=== PATIENT | male | born 1955 | race Two or more races ===

== ENCOUNTER 2019-09-08 09:42 | Inpatient (IN) | payer MEDICAID ==
[~2019-09-08] VITALS: Ht 182.9 cm; Wt 136.5 kg
[2019-09-08] MEDS ORDERED: DILTIAZEM HCL 5MG/ML 5ML VIAL IV ONE (10:15)
[2019-09-08 10:22] LABS: BASOPHILS % 0.4 % (0.0-2.0); CHLORIDE 104 mEq/L (98-107); EOSINOPHILS % 0.1 % (0.0-5.0); HEMATOCRIT. 45.7 % (42.0-52.0); HEMOGLOBIN. 15.5 g/dL (14.0-18.0); LYMPHOCYTES % 13.4 % (20.0-50.0); MEAN CORPUSCULAR HEMOGLOBIN 28.2 pg (28.0-32.0); MEAN CORPUSCULAR VOLUME 82.9 fL (80.0-94.0); MEAN PLATELET VOLUME 8.7 fl (7.4-10.4); MONOCYTES % 7.4 % (2.0-8.0); NEUTROPHILS % 78.7 % (40.0-76.0); PLATELET 246 x1000/uL (130-400); RED BLOOD CELL COUNT 5.51 mill/uL (4.7-6.1); RED CELL DISTRIBUTION WIDTH 15.1 % (11.6-14.6)
[2019-09-08 10:24] LABS: INR 1.1; PROTHROMBIN TIME 11.6 sec (9.6-11.0)
[2019-09-08] MEDS ORDERED: SODIUM CHLORIDE 0.9% 1,000 ML IV ONE (10:27)
[2019-09-08] MEDS ORDERED: DILTIAZEM HCL 125 MG in DEXT 5% WATER 100 ML IV ONE (10:30)
[2019-09-08] MEDS ORDERED: ONDANSETRON HCL 4MG/2ML INJ IV PRN (12:15)
[2019-09-08] MEDS ORDERED: ACETAMINOPHEN 325MG TABLET PO PRN (12:15)
[2019-09-08] MEDS ORDERED: DEXTROSE 50% WATER 50ML SYRINGE IV PRN (12:15)
[2019-09-08] MEDS ORDERED: SODIUM CHLORIDE 0.9% 1000ML BAG (SEPSIS BOLUS) IV ONE (13:00)
[2019-09-08] MEDS: BLOOD SUGAR DIAGNOSTIC STRIP TEST SCH ×2 (13:00→21:00)
[2019-09-08] MEDS ORDERED: PIPERACILLIN/TAZ 3.375G PREMIX 50 ML IV ONE (13:00)
[2019-09-08] MEDS: INSULIN LISPRO 100 UNITS/ML SUBCUT SCH ×2 (13:20→22:47)
[2019-09-08 13:26] LABS: CLARITY URINE CLEAR (CLEAR); COLOR URINE YELLOW (YELLOW); KETONES URINE NEGATIVE (NEGATIVE); LEUKOCYTE ESTERASE URINE 2+ (NEGATIVE); NITRITE URINE NEGATIVE (NEGATIVE); OCCULT BLOOD URINE 1+ (NEGATIVE); PH URINE 5.5 (4.5-8.0); PROTEIN URINE 2+ (NEGATIVE); SPECIFIC GRAVITY URINE 1.014 (1.005-1.030)
[2019-09-08 21:39] VITALS: BP 112/96
[2019-09-08 22:00] VITALS: BP 130/86
[2019-09-08] MEDS ORDERED: PNEUMOCOCCAL 23-VAL P-SAC VAC 0.5 ML IM ONE (22:15)
[2019-09-08] MEDS ORDERED: INFLUENZA VIRUS VACCINE(AFLURIA) 0.5ML SYR IM ONE (22:15)
[2019-09-08] MEDS: HEPARIN 5000 UNITS/ML VIAL SUBCUT SCH (22:48)
[2019-09-08] MEDS ORDERED: IPRATROPIUM/ALBUTEROL 0.5-3(2.5)MG/3ML NEB HHN PRN (23:30)
[2019-09-09] VITALS (12 sets, daily range): BP systolic 112–175; BP diastolic 60–102
[2019-09-09] MEDS: LORAZEPAM 0.5MG TABLET PO PRN ×2 (00:14→11:32)
[2019-09-09] MEDS ORDERED: ICOS0.5C PO (00:41)
[2019-09-09] MEDS ORDERED: CLOP75TA15 PO (00:41)
[2019-09-09] MEDS ORDERED: ASPI-1393 PO (00:41)
[2019-09-09] MEDS ORDERED: GLIP5TAB12 PO (00:41)
[2019-09-09] MEDS ORDERED: EMPA25TA PO (00:41)
[2019-09-09] MEDS ORDERED: ENAL20TA PO (00:41)
[2019-09-09] MEDS ORDERED: ERGO500013 PO (00:41)
[2019-09-09] MEDS ORDERED: METF-416 PO (00:44)
[2019-09-09] MEDS ORDERED: INSU100I28 SQ (00:44)
[2019-09-09] MEDS ORDERED: LINA5TAB PO (00:44)
[2019-09-09] MEDS: DILTIAZEM HCL 125 MG in DEXT 5% WATER 100 ML IV SCH ×2 (06:04→15:42)
[2019-09-09] MEDS: BLOOD SUGAR DIAGNOSTIC STRIP TEST SCH ×4 (06:19→23:32)
[2019-09-09 07:35] LABS: CHLORIDE 105 mEq/L (98-107)
[2019-09-09 07:45] LABS: T4 FREE 1.02 ng/dL (0.76-1.46)
[2019-09-09] MEDS: INSULIN LISPRO 100 UNITS/ML SUBCUT SCH ×4 (07:49→23:52)
[2019-09-09 08:33] LABS: BASOPHILS % 0.2 % (0.0-2.0); EOSINOPHILS % 0.1 % (0.0-5.0); HEMATOCRIT. 44.5 % (42.0-52.0); HEMOGLOBIN. 15.1 g/dL (14.0-18.0); LYMPHOCYTES % 16.3 % (20.0-50.0); MEAN CORPUSCULAR HEMOGLOBIN 28.2 pg (28.0-32.0); MEAN CORPUSCULAR VOLUME 83.2 fL (80.0-94.0); MEAN PLATELET VOLUME 8.8 fl (7.4-10.4); MONOCYTES % 13.5 % (2.0-8.0); NEUTROPHILS % 69.9 % (40.0-76.0); PLATELET 196 x1000/uL (130-400); RED BLOOD CELL COUNT 5.35 mill/uL (4.7-6.1); RED CELL DISTRIBUTION WIDTH 15.5 % (11.6-14.6)
[2019-09-09] MEDS: HEPARIN 5000 UNITS/ML VIAL SUBCUT SCH (09:22)
[2019-09-09] MEDS: METOCLOPRAMIDE HCL 10MG/2ML VIAL IV PRN ×2 (11:32→20:48)
[2019-09-09] MEDS ORDERED: PROCHLORPERAZINE 10MG/2ML VIAL IV PRN (14:15)
[2019-09-09] MEDS ORDERED: MAGNESIUM 2 G PREMIX 50 ML IV SCH (15:00)
[2019-09-09] MEDS ORDERED: ENOXAPARIN 150MG/ML SYR SUBCUT SCH (15:00)
[2019-09-09] MEDS: ASPIRIN 81MG TABLET PO SCH (15:07)
[2019-09-09] MEDS ORDERED: DIGOXIN 500MCG/2ML AMP IV PRN (15:45)
[2019-09-09] MEDS: DEXTROSE 5% WATER 1,000 ML IV SCH (21:33)
[2019-09-09] MEDS: ENOXAPARIN 150MG/ML SYR SUBCUT SCH (21:33)
[2019-09-09] MEDS ORDERED: INSULIN GLARGINE UD 100 UNITS/ML SYR SUBCUT SCH (22:00)
[2019-09-10] VITALS (15 sets, daily range): BP systolic 108–149; BP diastolic 61–95
[2019-09-10] MEDS: DILTIAZEM HCL 125 MG in DEXT 5% WATER 100 ML IV SCH ×2 (01:28→12:42)
[2019-09-10] MEDS: BLOOD SUGAR DIAGNOSTIC STRIP TEST SCH ×3 (05:32→18:57)
[2019-09-10] MEDS: INSULIN LISPRO 100 UNITS/ML SUBCUT SCH ×3 (05:39→19:09)
[2019-09-10 07:09] LABS: BASOPHILS % 0.2 % (0.0-2.0); EOSINOPHILS % 0.3 % (0.0-5.0); HEMATOCRIT. 41.4 % (42.0-52.0); LYMPHOCYTES % 14.3 % (20.0-50.0); MEAN CORPUSCULAR HEMOGLOBIN 28.2 pg (28.0-32.0); MEAN CORPUSCULAR VOLUME 83.2 fL (80.0-94.0); MEAN PLATELET VOLUME 8.7 fl (7.4-10.4); MONOCYTES % 11.1 % (2.0-8.0); NEUTROPHILS % 74.1 % (40.0-76.0); PLATELET 189 x1000/uL (130-400); RED BLOOD CELL COUNT 4.97 mill/uL (4.7-6.1); RED CELL DISTRIBUTION WIDTH 15.4 % (11.6-14.6)
[2019-09-10 07:30] LABS: CHLORIDE 102 mEq/L (98-107)
[2019-09-10] MEDS: ASPIRIN 81MG TABLET PO SCH (08:56)
[2019-09-10] MEDS: ENOXAPARIN 150MG/ML SYR SUBCUT SCH (09:04)
[2019-09-10] MEDS: METOCLOPRAMIDE HCL 10MG/2ML VIAL IV PRN (09:07)
[2019-09-10] MEDS ORDERED: DIATR MEGLU/DIATRIZOATE SOLN 30ML PO SCH (14:00)
[2019-09-10] MEDS ORDERED: IOHEXOL-300 100 ML BOTTLE ONE (15:07)
[2019-09-10] MEDS ORDERED: FENTANYL CITRATE/PF 50MCG/ML 2ML VIAL ONE (15:07)
[2019-09-10] MEDS ORDERED: LIDOCAINE HCL 1% 20ML VIAL (Pyxis) INJ ONE (15:07)
[2019-09-10] MEDS ORDERED: MIDAZOLAM HCL 2 MG/2 ML VIAL ONE (15:07)
[2019-09-10] MEDS ORDERED: IODIXANOL 320MG/ML 100 ML BOTTLE IV ONE (15:08)
[2019-09-10] MEDS ORDERED: ASPIRIN/SOD BICARB/CITRIC ACID 324MG TAB EFF ONE (15:13)
[2019-09-10] MEDS ORDERED: MORPHINE SULFATE 2 MG/ML CPJ (NOT FOR IM USE) IV PRN (16:30)
[2019-09-10] MEDS ORDERED: ACETAMINOPHEN 325MG TABLET PO PRN (16:30)
[2019-09-10] MEDS ORDERED: ATROPINE SULFATE 1MG/10ML SYR IV PRN (16:30)
[2019-09-10] MEDS ORDERED: SODIUM CHLORIDE 0.45% 1,000 ML IV ONE (16:30)
[2019-09-10] MEDS: DEXTROSE 5% WATER 1,000 ML IV SCH (16:45)
[2019-09-10] MEDS: METOCLOPRAMIDE HCL 10MG/2ML VIAL IV SCH (20:28)
[2019-09-10] MEDS: INSULIN GLARGINE UD 100 UNITS/ML SYR SUBCUT SCH (23:12)
[2019-09-11] VITALS (11 sets, daily range): BP systolic 112–161; BP diastolic 51–89
[2019-09-11] MEDS ORDERED: ENOXAPARIN 80MG/0.8ML SYR SUBCUT NR
[2019-09-11] MEDS: INSULIN LISPRO 100 UNITS/ML SUBCUT SCH ×5 (00:39→23:54)
[2019-09-11] MEDS: METOCLOPRAMIDE HCL 10MG/2ML VIAL IV SCH ×5 (01:50→23:39)
[2019-09-11] MEDS: DILTIAZEM HCL 125 MG in DEXT 5% WATER 100 ML IV SCH ×2 (04:52→20:48)
[2019-09-11] MEDS: BLOOD SUGAR DIAGNOSTIC STRIP TEST SCH ×5 (06:00→23:41)
[2019-09-11 07:21] LABS: BASOPHILS % 0.3 % (0.0-2.0); EOSINOPHILS % 0.7 % (0.0-5.0); HEMATOCRIT. 41.3 % (42.0-52.0); LYMPHOCYTES % 16.9 % (20.0-50.0); MEAN CORPUSCULAR HEMOGLOBIN 28.2 pg (28.0-32.0); MEAN CORPUSCULAR VOLUME 83.1 fL (80.0-94.0); MEAN PLATELET VOLUME 8.6 fl (7.4-10.4); MONOCYTES % 10.3 % (2.0-8.0); NEUTROPHILS % 71.8 % (40.0-76.0); PLATELET 213 x1000/uL (130-400); RED BLOOD CELL COUNT 4.97 mill/uL (4.7-6.1); RED CELL DISTRIBUTION WIDTH 15.1 % (11.6-14.6)
[2019-09-11 07:57] LABS: CHLORIDE 104 mEq/L (98-107)
[2019-09-11] MEDS: ASPIRIN 81MG TABLET PO SCH (08:40)
[2019-09-11] MEDS ORDERED: DIATR MEGLU/DIATRIZOATE SOLN 30ML PO SCH (09:00)
[2019-09-11] MEDS: ENOXAPARIN 120MG/0.8ML SYR SUBCUT SCH ×2 (12:28→20:20)
[2019-09-11] MEDS: DEXTROSE 5% WATER 1,000 ML IV SCH (12:50)
[2019-09-11] MEDS: INSULIN GLARGINE UD 100 UNITS/ML SYR SUBCUT SCH (21:40)
[2019-09-12] VITALS: BP 141/96
[2019-09-12 02:00] VITALS: BP 131/73
[2019-09-12 04:00] VITALS: BP 162/87
[2019-09-12 06:00] VITALS: BP 118/65
[2019-09-12] MEDS: BLOOD SUGAR DIAGNOSTIC STRIP TEST SCH (06:00)
[2019-09-12] MEDS: INSULIN LISPRO 100 UNITS/ML SUBCUT SCH (06:00)
[2019-09-12] MEDS: LORAZEPAM 0.5MG TABLET PO PRN (06:28)
[2019-09-12] MEDS: METOCLOPRAMIDE HCL 10MG/2ML VIAL IV SCH (06:28)
[2019-09-12 08:00] VITALS: BP 137/81
== END 2019-09-12 08:45 | disposition left against medical advice (07) | DRG 192 ==
LOC: ER 09:42 → EDBEDREQ 10:21 → EDBEDREQSVC 11:32 → ENRESERV 19:02 → 3WST 20:45
PROVIDERS: ADMIT Family Medicine Adult Medicine; ATTEND Family Medicine Adult Medicine
PROC: 4A023N7 Measurement of Cardiac Sampling and Pressure, Left Heart, Percutaneous Approach (ICD-10-PCS; principal; 2019-09-10)
PROC: B2111ZZ Fluoroscopy of Multiple Coronary Arteries using Low Osmolar Contrast (ICD-10-PCS; 2019-09-10)
PROC: B2151ZZ Fluoroscopy of Left Heart using Low Osmolar Contrast (ICD-10-PCS; 2019-09-10)
DX: I48.19 Other persistent atrial fibrillation (principal); J96.01 Acute respiratory failure with hypoxia; I47.2 Ventricular tachycardia; E11.65 Type 2 diabetes mellitus with hyperglycemia; E66.01 Morbid (severe) obesity due to excess calories; K56.0 Paralytic ileus; I11.0 Hypertensive heart disease with heart failure; I50.9 Heart failure, unspecified; K46.9 Unspecified abdominal hernia without obstruction or gangrene; Z53.29 Procedure and treatment not carried out because of patient's decision for other reasons; I25.10 Atherosclerotic heart disease of native coronary artery without angina pectoris; M47.816 Spondylosis without myelopathy or radiculopathy, lumbar region; N39.0 Urinary tract infection, site not specified; Z68.41 Body mass index [BMI] 40.0-44.9, adult; Z79.4 Long term (current) use of insulin; I69.351 Hemiplegia and hemiparesis following cerebral infarction affecting right dominant side; Z99.3 Dependence on wheelchair; Z79.899 Other long term (current) drug therapy; Z79.82 Long term (current) use of aspirin; Z79.84 Long term (current) use of oral hypoglycemic drugs
CPT/HCPCS: 36415; 71045; 74018; 74177; 78580; 80048; 80053; 81003; 82962; 83036; 83605; 83735; 83880; 84439; 84443; 84484; 85025; 85379; 90686; 90732; 93005; 93306; 93458; 93970; 99291; C1769; C1887; C1893; J1644; J1650; J1815; J2250; J2405; J2765; J3010; J3475; J3490; J7060; J7070; Q9963; Q9967

== ENCOUNTER 2021-06-17 15:07 | Inpatient (IN) | payer MEDICAID ==
[~2021-06-17] VITALS: Ht 175.3 cm; Wt 145.1 kg
[~2021-06-17 15:07] MED LIST: ASPI-1497 PO; CLOP75TA15 PO; EMPA25TA PO; ENAL20TA18 PO; ERGO500013 PO; GLIP5TAB12 PO; ICOS0.5C PO; INSU100I28 SQ; LINA5TAB PO; METF-416 PO
[2021-06-17 16:01] LABS: BG BASE EXCESS 4.2 mmol/L (-2.0-2.0); BG DEOXYHEMOGLOBIN 2.9 % (0.0-5.0); BG FRACTION INSPIRED OXYGEN 99.8; BG HCO3 ACT 34.1 mmol/L (22.0-26.0); BG METHEMOGLOBIN 0.3 % (0.0-1.5); BG OXYGEN SATURATION 97.1 % (92.0-98.5); BG OXYHEMOGLOBIN 95.8 % (94.0-97.0); BG PCO2 82.8 mmHg (35.0-45.0); BG PH 7.233 (7.350-7.450); BG PO2 110.8 mmHg (75.0-100.0); BG SAMPLE SITE RIGHT RADIAL; BG TOTAL HEMOGLOBIN 12.3 g/dL (12.0-18.0); BG VENT MODE MASK - NRB
[2021-06-17 16:04] LABS: BASOPHILS % 0.5 % (0.0-2.0); EOSINOPHILS % 2.1 % (0.0-5.0); HEMATOCRIT. 37.1 % (42.0-52.0); HEMOGLOBIN. 11.8 g/dL (14.0-18.0); LYMPHOCYTES % 19.4 % (20.0-50.0); MEAN CORPUSCULAR HEMOGLOBIN 26.7 pg (28.0-32.0); MEAN CORPUSCULAR VOLUME 84.1 fL (80.0-94.0); MONOCYTES % 11.5 % (2.0-8.0); NEUTROPHILS % 66.5 % (40.0-76.0); PLATELET 302 x1000/uL (130-400); RED BLOOD CELL COUNT 4.41 mill/uL (4.7-6.1); RED CELL DISTRIBUTION WIDTH 16.7 % (11.6-14.6)
[2021-06-17 16:10] LABS: CHLORIDE 103 mEq/L (98-107)
[2021-06-17 16:14] LABS: INR 3.2; PARTIAL THROMBOPLASTIN TIME 44.8 sec (23.4-31.0); PROTHROMBIN TIME 31.2 sec (9.6-11.0)
[2021-06-17] MEDS ORDERED: CEFTRIAXONE 1 G PREMIX 50 ML IV NR (16:30)
[2021-06-17 17:01] LABS: BG BASE EXCESS 4.6 mmol/L (-2.0-2.0); BG CARBOXYHEMOGLOBIN 1.2 % (0.5-1.5); BG DEOXYHEMOGLOBIN 11.5 % (0.0-5.0); BG FRACTION INSPIRED OXYGEN 25; BG HCO3 ACT 32.8 mmol/L (22.0-26.0); BG METHEMOGLOBIN 0.3 % (0.0-1.5); BG OXYGEN SATURATION 88.3 % (92.0-98.5); BG PCO2 67.7 mmHg (35.0-45.0); BG PH 7.303 (7.350-7.450); BG PO2 60.7 mmHg (75.0-100.0); BG SAMPLE SITE RIGHT RADIAL; BG TOTAL HEMOGLOBIN 12.2 g/dL (12.0-18.0); BG TOTAL RESPIRATORY RATE 27 b/min; BG VENT MODE MASK - BIPAP
[2021-06-17 21:13] VITALS: BP 114/78
[2021-06-17] MEDS ORDERED: DOCUSATE SODIUM 100MG CAPSULE PO PRN (21:30)
[2021-06-17] MEDS ORDERED: NALOXONE HCL 0.4MG/ML VIAL IV PRN (21:30)
[2021-06-17] MEDS ORDERED: LORAZEPAM 2MG/ML CPJ IV PRN (21:30)
[2021-06-17] MEDS ORDERED: ONDANSETRON HCL 4MG/2ML INJ IV PRN (21:30)
[2021-06-17] MEDS ORDERED: ACETAMINOPHEN 325MG TABLET PO PRN (21:30)
[2021-06-17] MEDS ORDERED: CLONIDINE 0.1MG TABLET PO PRN (21:30)
[2021-06-18] VITALS: BP 120/77
[2021-06-18 00:48] LABS: CREATINE KINASE 211 IU/L (39-308)
[2021-06-18 00:49] LABS: CREATINE KINASE MB FRACTION 5.3 ng/mL (0.5-3.6)
[2021-06-18] MEDS: IPRATROPIUM/ALBUTEROL 0.5-3(2.5)MG/3ML NEB NEB PRN (01:42)
[2021-06-18] MEDS ORDERED: GEMF600T90 PO (01:53)
[2021-06-18] MEDS ORDERED: FURO40TA5 PO (01:54)
[2021-06-18] MEDS ORDERED: WARF7.5T48 PO (01:56)
[2021-06-18] MEDS ORDERED: ATOR40TA70 PO (01:57)
[2021-06-18] MEDS ORDERED: CALC-900 PO (01:58)
[2021-06-18] MEDS ORDERED: TAMS-11 PO (01:58)
[2021-06-18] MEDS ORDERED: OMEG1CAP66 PO (01:59)
[2021-06-18] MEDS ORDERED: THIO100C2 PO (02:00)
[2021-06-18 04:00] VITALS: BP 119/77
[2021-06-18 06:47] LABS: BASOPHILS % 0.2 % (0.0-2.0); EOSINOPHILS % 0.6 % (0.0-5.0); HEMATOCRIT. 37.2 % (42.0-52.0); LYMPHOCYTES % 9.6 % (20.0-50.0); MEAN CORPUSCULAR HEMOGLOBIN 27.4 pg (28.0-32.0); MEAN CORPUSCULAR VOLUME 84.7 fL (80.0-94.0); MONOCYTES % 12.2 % (2.0-8.0); NEUTROPHILS % 77.4 % (40.0-76.0); PLATELET 352 x1000/uL (130-400); RED BLOOD CELL COUNT 4.39 mill/uL (4.7-6.1); RED CELL DISTRIBUTION WIDTH 17.2 % (11.6-14.6)
[2021-06-18 06:49] LABS: CHLORIDE 103 mEq/L (98-107)
[2021-06-18 06:57] LABS: PHOSPHORUS 4.6 mg/dL (2.5-4.9)
[2021-06-18 06:59] LABS: CREATINE KINASE 175 IU/L (39-308)
[2021-06-18 07:02] LABS: CREATINE KINASE MB FRACTION 4.9 ng/mL (0.5-3.6)
[2021-06-18 08:06] VITALS: BP 93/55
[2021-06-18] MEDS: THIAMINE HCL 100MG TABLET PO SCH (08:24)
[2021-06-18] MEDS ORDERED: CEFTRIAXONE 1 G PREMIX 50 ML IV SCH (11:15)
[2021-06-18 12:30] VITALS: BP 106/57
[2021-06-18] MEDS: FUROSEMIDE 40MG/4ML VIAL IVP SCH (14:37)
[2021-06-18] MEDS: CEFTRIAXONE 1,000 MG in DEXTROSE 5% WATER 50 ML IV SCH (16:00)
[2021-06-18 16:05] VITALS: BP 119/77
[2021-06-18 20:14] VITALS: BP_SYST 117; BP_SYST 120; BP_SYST 172; BP_DIAS 57; BP_DIAS 75; BP_DIAS 91
[2021-06-18] MEDS: HYDROCODONE/ACETAMINOPHEN 5/325MG TABLET PO PRN (22:47)
[2021-06-19] VITALS: BP 103/64
[2021-06-19] MEDS ORDERED: VANCOMYCIN 2,000 MG in DEXT 5% WATER 500 ML IV NR
[2021-06-19] MEDS: AZITHROMYCIN 250 MG TABLET PO SCH ×2 (00:37→11:14)
[2021-06-19 04:00] VITALS: BP 138/86
[2021-06-19] MEDS: IPRATROPIUM/ALBUTEROL 0.5-3(2.5)MG/3ML NEB NEB PRN ×2 (05:43→09:44)
[2021-06-19] MEDS: HYDROCODONE/ACETAMINOPHEN 5/325MG TABLET PO PRN (06:01)
[2021-06-19 06:10] LABS: BASOPHILS % 0.3 % (0.0-2.0); EOSINOPHILS % 2.1 % (0.0-5.0); HEMATOCRIT. 39.3 % (42.0-52.0); HEMOGLOBIN. 12.7 g/dL (14.0-18.0); LYMPHOCYTES % 18.7 % (20.0-50.0); MEAN CORPUSCULAR HEMOGLOBIN 27.6 pg (28.0-32.0); MEAN CORPUSCULAR VOLUME 85.5 fL (80.0-94.0); MONOCYTES % 11.2 % (2.0-8.0); NEUTROPHILS % 67.7 % (40.0-76.0); PLATELET 324 x1000/uL (130-400); RED CELL DISTRIBUTION WIDTH 17.1 % (11.6-14.6)
[2021-06-19 06:16] LABS: INR 3.7
[2021-06-19 06:42] LABS: CHLORIDE 101 mEq/L (98-107)
[2021-06-19 08:00] VITALS: BP 167/100
[2021-06-19] MEDS ORDERED: ENOXAPARIN 150MG/ML SYR SUBCUT SCH ×2 (09:00)
[2021-06-19] MEDS: THIAMINE HCL 100MG TABLET PO SCH (09:00)
[2021-06-19] MEDS: FUROSEMIDE 40MG/4ML VIAL IVP SCH (11:14)
[2021-06-19 12:06] VITALS: BP 120/91
[2021-06-19] MEDS ORDERED: DILTIAZEM HCL 30MG TABLET PO SCH (13:00)
[2021-06-19] MEDS: CEFTRIAXONE 1,000 MG in DEXTROSE 5% WATER 50 ML IV SCH (16:00)
[2021-06-19] MEDS ORDERED: FUROSEMIDE 40MG/4ML VIAL IVP NR (17:00)
[2021-06-19] MEDS ORDERED: VANCOMYCIN 1500MG in DEXTROSE 5% WATER 250ML IV SCH (18:00)
[2021-06-20] MEDS ORDERED: APIXABAN 5 MG TABLET PO SCH (09:00)
== END 2021-06-19 17:40 | disposition hospice, home (50) | DRG 720 ==
LOC: ER 15:07 → 6WST 17:11 → EDBEDREQ 18:40 → EDBEDREQTM 18:40 → EDBEDREQSVC 18:40 → ENRESERV 20:16
PROVIDERS: ADMIT Internal Medicine Nephrology; ATTEND Internal Medicine Nephrology
PROC: 5A09357 Assistance with Respiratory Ventilation, Less than 24 Consecutive Hours, Continuous Positive Airway Pressure (ICD-10-PCS; principal; 2021-06-17)
DX: A41.9 Sepsis, unspecified organism (principal); J96.02 Acute respiratory failure with hypercapnia; E43 Unspecified severe protein-calorie malnutrition; J18.9 Pneumonia, unspecified organism; E11.51 Type 2 diabetes mellitus with diabetic peripheral angiopathy without gangrene; I11.0 Hypertensive heart disease with heart failure; I50.9 Heart failure, unspecified; L03.115 Cellulitis of right lower limb; D64.9 Anemia, unspecified; I48.91 Unspecified atrial fibrillation; E66.01 Morbid (severe) obesity due to excess calories; Z66 Do not resuscitate; E78.5 Hyperlipidemia, unspecified; G47.33 Obstructive sleep apnea (adult) (pediatric); I25.10 Atherosclerotic heart disease of native coronary artery without angina pectoris; Z20.822 Contact with and (suspected) exposure to COVID-19; I87.8 Other specified disorders of veins; S80.812A Abrasion, left lower leg, initial encounter; X58.XXXA Exposure to other specified factors, initial encounter; Y93.89 Activity, other specified; Y92.89 Other specified places as the place of occurrence of the external cause; Y99.8 Other external cause status; Z86.73 Personal history of transient ischemic attack (TIA), and cerebral infarction without residual deficits; Z68.42 Body mass index [BMI] 45.0-49.9, adult; Z71.3 Dietary counseling and surveillance; Z87.891 Personal history of nicotine dependence; Z79.899 Other long term (current) drug therapy; Z79.01 Long term (current) use of anticoagulants
CPT/HCPCS: 36415; 36600; 71045; 80048; 80053; 82375; 82550; 82553; 82805; 83605; 83735; 83880; 84100; 84484; 85025; 87426; 93005; 93306; 94640; 94660; 99291; C1893; J0696; J1940; J2060; J3370; J7040; J7060